=== PATIENT | female | born 1935 | race Caucasian/White ===

== ENCOUNTER → 2017-07-22 | Outpatient (CLI) | payer MEDICARE ==
[~2017-07-22] MED LIST: CYCLOBENZAPRINE5 MG PO; KEFLEX500 MG PO; NAPROSYN375 MG PO
== END | disposition home or self-care (01) ==
LOC: RAD 12:17
DX: M48.02 Spinal stenosis, cervical region (principal); Z91.81 History of falling

== ENCOUNTER 2017-11-14 02:44 | Emergency (ER) | payer MEDICARE ==
[~2017-11-14] VITALS: Wt 47.6 kg
[2017-11-14 03:22] LABS: BASO % 0.2 % (0.0-1.0); EOS # 0.1 10*3/uL (0.0-0.4); EOS % 1.1 % (1.0-4.0); HEMATOCRIT 39.9 % (37.0-47.0); LYMPH # 1.1 10*3/uL (1.3-4.4); LYMPH % 10.9 % (27.0-41.0); MEAN CELL VOLUME 90.1 fl (81.0-99.0); MEAN CORPUSCULAR HGB 29.3 pg (27.0-31.0); MEAN CORPUSCULAR HGB CONC 32.6 g/dl (33.0-37.0); MEAN PLATELET VOLUME 9.4 fl (9.6-12.3); MONO # 0.9 10*3/uL (0.1-1.0); MONO % 8.5 % (3.0-9.0); NEUT # 8.3 10*3/uL (2.3-7.9); NEUT % 78.8 % (47.0-73.0); PLATELET COUNT AUTOMATED 186 10*3/uL (130-400); RED BLOOD COUNT 4.43 10*6/uL (4.10-5.10); RED CELL DISTRI WIDTH 12.8 % (0-14.5); WHITE BLOOD COUNT 10.5 10*3/uL (4.8-10.8)
[2017-11-14 03:42] LABS: ALBUMIN 3.6 gm/dl (3.1-4.5); ALKALINE PHOSPHATASE 72 U/L (45-117); BUN 17 mg/dl (7-24); CHLORIDE 103 mmol/L (98-107); CPK 28 U/L (26-192); CREATININE 0.77 mg/dL (0.55-1.02); SGOT/AST 18 IU/L (3-35); SGPT/ALT 22 U/L (12-78); SODIUM 139 mmol/L (136-145); TOTAL PROTEIN 7.1 gm/dL (6.4-8.2)
[2017-11-14 03:43] LABS: CKMB 1.4 ng/ml (0.5-3.6)
[2017-11-14 03:44] LABS: ACT PARTIAL THROMBO TIME 24.7 SECONDS (20.8-31.5)
[2017-11-14 03:45] LABS: TROPONIN I < 0.015 ng/ml (<0.045)
[2017-11-14 05:00] VITALS: BP 126/59
[2017-11-14] MEDS ORDERED: LEVOFLOXACIN500 MG PO ×2 (05:00→05:03)
[2017-11-14] MEDS ORDERED: TYLENOL W/CODEI1 TA4 PO (05:00)
== END 2017-11-14 05:21 | disposition home or self-care (01) ==
LOC: ED 02:44
PROVIDERS: Emergency Medicine
DX: M48.44XA Fatigue fracture of vertebra, thoracic region, initial encounter for fracture (principal); R07.9 Chest pain, unspecified; J18.9 Pneumonia, unspecified organism; Z90.710 Acquired absence of both cervix and uterus; Z98.890 Other specified postprocedural states

== ENCOUNTER → 2017-12-06 | Outpatient (CLI) | payer MEDICARE ==
[~2017-12-06] MED LIST changes: +LEVOFLOXACIN500 MG PO; +TYLENOL W/CODEI1 TA4 PO
== END | disposition home or self-care (01) ==
LOC: RAD 13:00
DX: Z13.820 Encounter for screening for osteoporosis (principal); N17.9 Acute kidney failure, unspecified; R29.890 Loss of height; R63.6 Underweight; Z78.0 Asymptomatic menopausal state; Z90.710 Acquired absence of both cervix and uterus

== ENCOUNTER → 2018-09-04 | Outpatient (CLI) | payer MEDICARE | END | disposition home or self-care (01) | LOC: RAD 12:49 | DX: M16.12 Unilateral primary osteoarthritis, left hip (principal) ==

== ENCOUNTER 2021-08-06 10:18 | Emergency (ER) | payer MEDICARE ==
[~2021-08-06] VITALS: Ht 160 cm
[2021-08-06 10:21] VITALS: BP 149/66
[2021-08-06 11:13] LABS: BASO % 0.5 % (0.0-1.0); EOS # 0.1 10*3/uL (0.0-0.4); EOS % 1.9 % (1.0-4.0); HEMATOCRIT 42.3 % (37.0-47.0); LYMPH % 17.4 % (27.0-41.0); MEAN CELL VOLUME 94.4 fl (81.0-99.0); MEAN CORPUSCULAR HGB 29.7 pg (27.0-31.0); MEAN CORPUSCULAR HGB CONC 31.4 g/dl (33.0-37.0); MONO # 0.6 10*3/uL (0.1-1.0); MONO % 9.9 % (3.0-9.0); NEUT # 4.1 10*3/uL (2.3-7.9); PLATELET COUNT AUTOMATED 228 10*3/uL (130-400); RED BLOOD COUNT 4.48 10*6/uL (4.10-5.10); RED CELL DISTRI WIDTH 12.8 % (0-14.5); WHITE BLOOD COUNT 5.9 10*3/uL (4.8-10.8)
[2021-08-06 11:49] LABS: ALKALINE PHOSPHATASE 51 U/L (45-117); BUN 14 mg/dl (7-24); CHLORIDE 108 mmol/L (98-107); CREATININE 0.67 mg/dL (0.55-1.02); POTASSIUM 3.9 mmol/L (3.5-5.1); SGOT/AST 11 IU/L (3-35); SGPT/ALT 20 U/L (12-78); SODIUM 137 mmol/L (136-145); TOTAL PROTEIN 6.4 gm/dL (6.4-8.2)
[2021-08-06 11:59] LABS: BILIRUBIN Negative (Negative); BLOOD Negative (Negative); CLARITY Turbid (Clear); COLOR Dark Yellow (Yellow); GLUCOSE Negative (Negative); KETONE Negative (Negative); LEUKO ESTERASE 1+ (Negative); NITRITE Negative (Negative); PH 6.5 (4.5-8.0); SPECIFIC GRAVITY 1.015 (1.001-1.030); UROBILINOGEN 0.2 E.U./dl (0.0-1.0)
[2021-08-06 12:07] LABS: BACTERIA 2+; CALCIUM OXALATE CRYSTALS 2+
== END 2021-08-06 12:25 | disposition home or self-care (01) ==
LOC: ED 10:18
PROVIDERS: Student in an Organized Health Care Education/Training Program
DX: R53.1 Weakness (principal); R29.810 Facial weakness

== ENCOUNTER → 2021-08-07 | Outpatient (CLI) | payer MEDICARE | END | disposition home or self-care (01) | LOC: US 11:06 | PROVIDERS: ATTEND Student in an Organized Health Care Education/Training Program | DX: I65.23 Occlusion and stenosis of bilateral carotid arteries (principal); R42 Dizziness and giddiness ==

== ENCOUNTER 2022-10-24 16:51 | Emergency (ER) | payer MEDICARE ==
[~2022-10-24] VITALS: Ht 170.1 cm; Wt 46.7 kg
[2022-10-24 16:59] VITALS: BP 184/70
== END 2022-10-24 21:36 | disposition home or self-care (01) ==
LOC: ED 16:51
DX: S82.092A Other fracture of left patella, initial encounter for closed fracture (principal); S09.90XA Unspecified injury of head, initial encounter; R91.1 Solitary pulmonary nodule; M19.90 Unspecified osteoarthritis, unspecified site; Z90.710 Acquired absence of both cervix and uterus; Z98.890 Other specified postprocedural states; W10.9XXA Fall (on) (from) unspecified stairs and steps, initial encounter; Y93.89 Activity, other specified; Y92.22 Religious institution as the place of occurrence of the external cause; Y99.8 Other external cause status

== ENCOUNTER 2023-09-03 09:15 | Emergency (ER) | payer MEDICARE ==
[~2023-09-03] VITALS: Ht 170.1 cm; Wt 46.3 kg
[2023-09-03 10:05] VITALS: BP 140/72
== END 2023-09-03 15:30 | disposition home or self-care (01) ==
LOC: ED 09:15
DX: S01.81XA Laceration without foreign body of other part of head, initial encounter (principal); Z90.711 Acquired absence of uterus with remaining cervical stump; Z98.890 Other specified postprocedural states; W18.09XA Striking against other object with subsequent fall, initial encounter; Y93.89 Activity, other specified; Y92.89 Other specified places as the place of occurrence of the external cause; Y99.8 Other external cause status

== ENCOUNTER → 2023-11-28 | Outpatient (CLI) | payer MEDICARE | END | disposition home or self-care (01) | LOC: LAB 11:16 | PROVIDERS: ATTEND Internal Medicine | DX: R30.0 Dysuria (principal) ==

== ENCOUNTER 2023-12-28 12:20 | Emergency (ER) | payer MEDICARE ==
[~2023-12-28] VITALS: Wt 47.6 kg
[2023-12-28 12:31] VITALS: BP 142/52
[2023-12-28] MEDS ORDERED: ACETAMINOPHEN 325 MG TAB PO ONE (12:55)
[2023-12-28 13:21] LABS: BASO % 0.3 % (0.0-1.0); EOS # 0.1 10*3/uL (0.0-0.4); EOS % 0.8 % (1.0-4.0); HEMATOCRIT 41.9 % (37.0-47.0); LYMPH # 1.4 10*3/uL (1.3-4.4); MEAN CELL VOLUME 94.4 fl (81.0-99.0); MEAN CORPUSCULAR HGB 29.5 pg (27.0-31.0); MEAN CORPUSCULAR HGB CONC 31.3 g/dl (33.0-37.0); MEAN PLATELET VOLUME 9.2 fl (9.6-12.3); MONO # 1.1 10*3/uL (0.1-1.0); MONO % 15.3 % (3.0-9.0); NEUT # 4.8 10*3/uL (2.3-7.9); NEUT % 64.5 % (47.0-73.0); PLATELET COUNT AUTOMATED 227 10*3/uL (130-400); RED BLOOD COUNT 4.44 10*6/uL (4.10-5.10); WHITE BLOOD COUNT 7.4 10*3/uL (4.8-10.8)
[2023-12-28 13:36] LABS: ALKALINE PHOSPHATASE 103 U/L (46-116); BUN 13 mg/dl (9-23); CHLORIDE 104 mmol/L (98-107); POTASSIUM 3.9 mmol/L (3.4-5.1); SGPT/ALT 22 U/L (5-49); TOTAL PROTEIN 7.1 gm/dL (6.0-8.0)
[2023-12-28] MEDS ORDERED: CEPHALEXIN500 M1 PO (14:48)
[2023-12-28] MEDS ORDERED: PREDNISONE20 M1 PO (14:48)
[2023-12-28] MEDS ORDERED: predniSONE 20 MG TAB PO ONE (14:50)
[2023-12-28] MEDS ORDERED: CEPHALEXIN 500 MG CAP PO ONE (14:50)
== END 2023-12-28 14:51 | disposition home or self-care (01) ==
LOC: ED 12:20
PROVIDERS: Physician Assistant
DX: M70.31 Other bursitis of elbow, right elbow (principal); M19.90 Unspecified osteoarthritis, unspecified site; Z98.890 Other specified postprocedural states; Z90.710 Acquired absence of both cervix and uterus

== ENCOUNTER 2024-02-10 09:48 | Emergency (ER) | payer MEDICARE ==
[~2024-02-10] VITALS: Ht 162.5 cm; Wt 47.2 kg
[~2024-02-10 09:48] MED LIST changes: +CEPHALEXIN500 M1 PO; +PREDNISONE20 M1 PO
[2024-02-10] MEDS ORDERED: BUSPAR5 MG PO (10:04)
[2024-02-10] MEDS ORDERED: MEMANTINE HCL10 MG PO (10:05)
[2024-02-10] MEDS ORDERED: Synthroid,Levo25 MCG PO (10:06)
[2024-02-10] MEDS ORDERED: OXYBUTYNIN5 MG PO (10:06)
[2024-02-10] MEDS ORDERED: VITAMIN B1250 MCG PO (10:07)
[2024-02-10 10:37] LABS: HEMATOCRIT 43.9 % (37.0-47.0); MEAN CELL VOLUME 93.2 fl (81.0-99.0); MEAN CORPUSCULAR HGB 29.9 pg (27.0-31.0); MEAN CORPUSCULAR HGB CONC 32.1 g/dl (33.0-37.0); MEAN PLATELET VOLUME 9.5 fl (9.6-12.3); PLATELET COUNT AUTOMATED 184 10*3/uL (130-400); RED BLOOD COUNT 4.71 10*6/uL (4.10-5.10); RED CELL DISTRI WIDTH 13.2 % (0-14.5); WHITE BLOOD COUNT 10.8 10*3/uL (4.8-10.8)
[2024-02-10 10:38] LABS: MANUAL DIFF REFLEX YES
[2024-02-10 10:47] LABS: ACT PARTIAL THROMBO TIME 27.6 SECONDS (20.0-32.1)
[2024-02-10 11:00] LABS: ALKALINE PHOSPHATASE 75 U/L (46-116); BUN 12 mg/dl (9-23); CHLORIDE 103 mmol/L (98-107); POTASSIUM 3.8 mmol/L (3.4-5.1); SGPT/ALT 11 U/L (5-49); TOTAL PROTEIN 6.7 gm/dL (6.0-8.0)
[2024-02-10 11:02] LABS: OVALOCYTES FEW; PLATELET SUFFICIENCY NORMAL (NORMAL); POLYCHROMASIA SLIGHT; TOTAL CELLS COUNTED 100 #CELLS
[2024-02-10 13:36] VITALS: BP 126/74
[2024-02-10] MEDS ORDERED: PREDNISONE50 MG PO (13:38)
== END 2024-02-10 13:44 | disposition home or self-care (01) ==
LOC: ED 09:48
PROVIDERS: Internal Medicine
DX: M25.562 Pain in left knee (principal); M19.90 Unspecified osteoarthritis, unspecified site; Z90.710 Acquired absence of both cervix and uterus; Z98.890 Other specified postprocedural states